=== PATIENT | male | born 1965 | race American Indian/Alaskan Native ===

== ENCOUNTER 2016-10-09 12:07 | Day surgery (SDC) | payer BC ==
[2016-10-05 08:44] LABS: PLATELET COUNT 258 K/uL (142-355)
[2016-10-05 08:45] LABS: POTASSIUM 3.6 mmol/L (3.6-5.2); SODIUM 136 mmol/L (136-145)
[~2016-10-09] VITALS: Ht 30.5 cm; Wt 0.5 kg
== END 2016-10-09 14:20 | disposition home or self-care (01) ==
LOC: OR 12:07
PROVIDERS: Surgery
PROC: 0DBB8ZZ Excision of Ileum, Via Natural or Artificial Opening Endoscopic (ICD-10-PCS; principal; 2016-10-09)
PROC: 0DBH8ZZ Excision of Cecum, Via Natural or Artificial Opening Endoscopic (ICD-10-PCS; 2016-10-09)
DX: D12.0 Benign neoplasm of cecum (principal); K63.5 Polyp of colon; K57.30 Diverticulosis of large intestine without perforation or abscess without bleeding; Z12.11 Encounter for screening for malignant neoplasm of colon
CPT/HCPCS: 36415; 80048; 85027; J2704

== ENCOUNTER 2017-07-04 21:04 | Emergency (ER) | payer BC ==
[~2017-07-04] VITALS: Ht 185.4 cm; Wt 103.9 kg
[2017-07-04 21:49] LABS: PLATELET COUNT 231 K/uL (142-355)
[2017-07-04 21:56] LABS: POTASSIUM 3.4 mmol/L (3.6-5.2)
[2017-07-04 22:54] VITALS: BP 141/86; TEMP 98
== END 2017-07-04 22:55 | disposition home or self-care (01) ==
LOC: ED 21:04
DX: I10 Essential (primary) hypertension (principal); J44.9 Chronic obstructive pulmonary disease, unspecified
CPT/HCPCS: 36415; 80053; 85027; 99283

== ENCOUNTER 2019-12-10 14:31 | Emergency (ER) | payer OTHER ==
[~2019-12-10] VITALS: Ht 185.4 cm; Wt 106.6 kg
[2019-12-10 15:23] LABS: PLATELET COUNT 209 K/uL (142-355)
[2019-12-10 15:30] LABS: POTASSIUM 3.6 mmol/L (3.6-5.2); SODIUM 143 mmol/L (136-145)
[2019-12-10 15:46] LABS: PARTIAL THROMBOPLASTIN TIME 27.7 SECONDS (24.5-33.6)
[2019-12-10 16:40] VITALS: BP 154/87; TEMP 97.8
== END 2019-12-10 16:40 | disposition home or self-care (01) ==
LOC: ED 14:31
PROVIDERS: Hospitalist
DX: E86.0 Dehydration (principal); R42 Dizziness and giddiness; R51 Headache; R11.0 Nausea
CPT/HCPCS: 36415; 80053; 80320; 82550; 83880; 84484; 85027; 85610; 85730; 93005; 96360; 96375; 99284; J2405

== ENCOUNTER 2020-12-20 07:57 | Outpatient (CLI) | payer OTHER | END 2020-12-20 19:18 | disposition home or self-care (01) | LOC: RESP 07:57 | PROVIDERS: ATTEND Nurse Practitioner Family | DX: I10 Essential (primary) hypertension (principal); E78.5 Hyperlipidemia, unspecified; D64.9 Anemia, unspecified; K21.9 Gastro-esophageal reflux disease without esophagitis; M25.569 Pain in unspecified knee; E56.9 Vitamin deficiency, unspecified; R73.03 Prediabetes | CPT/HCPCS: 93005 ==

== ENCOUNTER 2022-01-08 15:11 | Emergency (ER) | payer OTHER ==
[~2022-01-08] VITALS: Ht 185.4 cm; Wt 110.7 kg
[2022-01-08 16:06] LABS: PLATELET COUNT 230 K/uL (142-355)
[2022-01-08 16:14] LABS: POTASSIUM 3.4 mmol/L (3.6-5.2)
[2022-01-08] MEDS ORDERED: KETO10TA34 PO (17:21)
[2022-01-08 17:27] VITALS: BP 124/78; TEMP 98.1
== END 2022-01-08 17:28 | disposition home or self-care (01) ==
LOC: ED 15:11
PROVIDERS: Emergency Medicine Emergency Medical Services
DX: M54.12 Radiculopathy, cervical region (principal)
CPT/HCPCS: 36415; 80053; 83735; 84484; 85027; 93005; 99284

== ENCOUNTER 2022-07-05 10:09 | Outpatient (CLI) | payer OTHER ==
[~2022-07-05 10:09] MED LIST: KETO10TA34 PO
== END 2022-07-05 22:26 | disposition home or self-care (01) ==
LOC: US 10:09
PROVIDERS: ATTEND Internal Medicine Cardiovascular Disease
DX: R42 Dizziness and giddiness (principal)

== ENCOUNTER 2022-07-27 07:56 | Outpatient (CLI) | payer OTHER | END 2022-07-27 19:05 | disposition home or self-care (01) | LOC: CT 07:56 | PROVIDERS: ATTEND Nurse Practitioner Family | DX: R42 Dizziness and giddiness (principal) ==